=== PATIENT | male | born 1945 | race Two or more races ===

== ENCOUNTER 2022-12-23 11:24 | Inpatient (IN) | payer OTHER ==
[~2022-12-23] VITALS: Ht 177.8 cm; Wt 88.5 kg
[~2022-12-23 11:24] MED LIST: ALEVE220 MG; TRAMADOL HCL50 MG
[2022-12-23] MEDS ORDERED: COZAAR25 MG (12:02)
[2022-12-23] MEDS ORDERED: TAMS0.4C (12:03)
[2022-12-23 12:57] LABS: HEMATOCRIT 43.2 % (39.0-48.0); HEMOGLOBIN 14.8 g/dL (13-16.00); MEAN CELL VOLUME 88.8 fL (80.0-100.00); MEAN CORPUSCULAR HEMOGLOBIN 30.5 pg (27.00-32.0); MEAN CORPUSCULAR HGB CONC 34.3 g/dl (32.0-36.0); PLATELET COUNT 316 K/uL (150-450); RED BLOOD COUNT 4.86 M/uL (4.00-6.00); RED CELL DISTRIBUTION WIDTH 14.1 % (11.5-14.5)
[2022-12-23 13:36] LABS: PARTIAL THROMBOPLASTIN TIME 26.9 SECONDS (22.0-34.0); PROTHROMBIN TIME 10.5 SECONDS (9.0-11.5)
[2022-12-23 13:42] LABS: CKMB 8.3 NG/ML (0.5-3.6); CREATININE SERUM 1.86 mg/dL (0.70-1.30); GFR 35.31; POTASSIUM 3.39 mEq/L (3.5-5.1)
[2022-12-23 19:57] LABS: MAGNESIUM 2.2 mg/dL (1.8-2.4); PHOSPHOROUS 3.2 mg/dL (2.5-4.9)
[2022-12-23 20:00] LABS: PH,URINE 5.5 (5.0-8.0); URINE APPEARANCE Clear; URINE BILIRRUBIN Negative (NEGATIVE); URINE BLOOD Negative; URINE COLOR Yellow; URINE GLUCOSE Negative (NEGATIVE); URINE LEUKOCYTE Negative; URINE NITRATE Negative; URINE PROTEIN Negative (NEGATIVE); URINE UROBILINOGEN 0.2 E.U./dl
[2022-12-23 20:04] LABS: URINE WBC 3.2 uL (0.0-23.2)
[2022-12-23 20:06] LABS: URINE BACTERIA 2.5 uL (0.0-1933); URINE EPITHELIAL CELLS 0.7 uL (0.0-38.8); URINE RBC 0.4 uL (0.0-20.8)
[2022-12-24 06:55] LABS: CHOL HDL RATIO 1.6 (0-5.0); TSH 0.761 uIU/mL (0.358-3.74)
[2022-12-25 06:46] LABS: HEMATOCRIT 37.5 % (39.0-48.0); HEMOGLOBIN 12.8 g/dL (13-16.00); MEAN CELL VOLUME 89.3 fL (80.0-100.00); MEAN CORPUSCULAR HEMOGLOBIN 30.6 pg (27.00-32.0); MEAN CORPUSCULAR HGB CONC 34.3 g/dl (32.0-36.0); PLATELET COUNT 238 K/uL (150-450); RED BLOOD COUNT 4.19 M/uL (4.00-6.00); RED CELL DISTRIBUTION WIDTH 14.2 % (11.5-14.5)
[2022-12-25 07:03] LABS: ALBUMIN 3.1 gm/dL (3.4-5.0); BILIRUBIN TOTAL 0.68 mg/dL (0.3-1.2); CALCIUM 8.4 mg/dL (8.5-10.1); CREATININE SERUM 1.3 mg/dL (0.70-1.30); GFR 53.39; GLOBULINA 3.5 G/DL (2.4-3.5); POTASSIUM 4.92 mEq/L (3.5-5.1); TOTAL PROTEIN 6.6 gm/dL (6.4-8.2)
[2022-12-25] MEDS ORDERED: TAMS0.4C PO (09:46)
[2022-12-25] MEDS ORDERED: ELIQUIS5 MG PO (09:46)
[2022-12-25] MEDS ORDERED: COZAAR25 MG PO (09:47)
[2022-12-25] MEDS ORDERED: AMIODARONE HCL200 MG PO (09:47)
[2022-12-25] MEDS ORDERED: LOPRESSOR25 MG PO (09:48)
== END 2022-12-25 10:00 | disposition home or self-care (01) | DRG 281 ==
LOC: ER 11:24 → ICU-2 18:25
PROVIDERS: General Practice; Internal Medicine; ADMIT Internal Medicine; ATTEND Internal Medicine
PROC: BW28ZZZ Computerized Tomography (CT Scan) of Head (ICD-10-PCS; principal; 2022-12-23)
PROC: B246ZZZ Ultrasonography of Right and Left Heart (ICD-10-PCS; 2022-12-23)
PROC: B343ZZ3 Ultrasonography of Right Common Carotid Artery, Intravascular (ICD-10-PCS; 2022-12-23)
DX: I21.4 Non-ST elevation (NSTEMI) myocardial infarction (principal); I48.4 Atypical atrial flutter; N17.8 Other acute kidney failure; I10 Essential (primary) hypertension; F12.20 Cannabis dependence, uncomplicated